=== PATIENT | female | born 1980 | race American Indian/Alaskan Native ===

== ENCOUNTER 2021-10-04 13:50 | Emergency (ER) | payer MEDICAID ==
--- NOTE | 2021-10-04 14:48 | Emergency Department Report ---
<LYNDA TONG - Last Filed: 10/04/21 18:45> ED General Adult HPI - General Chief complaint: Hyperglycemia Stated complaint: NOT FEELING GOOD Time Seen by Provider: 10/04/21 14:00 Source: patient Mode of arrival: Stretcher Limitations: No Limitations - History of Present Illness Initial comments: 41-year-old -Armenian obese female with a past medical history of congestive heart failure, diabetes, hypertension, DKA, and is status post right BKA presents to the ER today with complaints of "my blood sugar is high, my blood pressure is high, and I think my congestive heart failure is acting up,". Patient states symptoms started about 2 days ago. Patient states that she takes insulin to help control her blood sugar and she usually takes 14 units 3 times a day and a long-lasting insulin at night. She states that she did increase her insulin to 20 units 3 times a day but her blood sugar still been running in the 300s and sometimes up into the 500s. Patient admits that she has not been compliant with her blood pressure medications, nor her "heart medications". She states that she is also on Lasix, but ran out and has not taken it in a while. She states that she can tell when her blood pressure is high because she started seeing dots. But she has not actually checked it at home. She states that she has been short of breath mainly with exertion and she has had lower extremity swelling. She reports mild body aches but otherwise reports no chest pain, headache, focal weakness, ph, slurred speech, vomiting, diarrhea or any additional symptoms. MD Complaint: Elevated BP, await blood sugar, leg swelling and shortness of breath -: days(s) (2) Severity scale (0 -10): 0 - Related Data Previous Rx's Medication Instructions Recorded Last Taken Type Amoxicillin/Potassium Clav 1 each PO BID #14 tablet 10/04/21 Unknown Rx [Augmentin 875-125 Tablet] Furosemide [Lasix TAB] 40 mg PO QDAY #30 tablet 10/04/21 Unknown Rx Allergies Allergy/AdvReac Type Severity Reaction Status Date / Time No Known Allergies Allergy Unverified 10/04/21 13:53 ED Review of Systems Comment: All other systems reviewed and negative Constitutional: denies: chills, diaphoresis, fever, malaise, weakness Eyes: denies: eye pain, eye discharge, vision change ENT: denies: ear pain, throat pain, dental pain, hearing loss, epistaxis Respiratory: shortness of breath. denies: cough, orthopnea, wheezing Cardiovascular: dyspnea on exertion, edema. denies: chest pain, palpitations, syncope, paroxysmal nocturnal dyspnea Gastrointestinal: denies: abdominal pain, nausea, vomiting, diarrhea, constipation, hematemesis, hematochezia Genitourinary: denies: urgency, dysuria, frequency, hematuria, discharge, abnormal menses, dyspareunia Musculoskeletal: denies: back pain, joint swelling, arthralgia, myalgia Skin: denies: rash, lesions, change in color, change in hair/nails, pruritus Neurological: denies: headache, weakness, numbness, paresthesias, confusion, abnormal gait, vertigo Psychiatric: denies: anxiety, depression, auditory hallucinations, visual hallucinations, homicidal thoughts, suicidal thoughts Hematological/Lymphatic: denies: easy bleeding, easy bruising, swollen glands ED Past Medical Hx - Past Medical History Previous Medical History?: Yes Hx Hypertension: Yes Hx Congestive Heart Failure: Yes Hx Diabetes: Yes - Surgical History Past Surgical History?: Yes Additional Surgical History: RIGHT BKA - Medications Home Medications: Home Medications Medication Instructions Recorded Confirmed Last Taken Type Amoxicillin/Potassium Clav 1 each PO BID #14 tablet 10/04/21 Unknown Rx [Augmentin 875-125 Tablet] Furosemide [Lasix TAB] 40 mg PO QDAY #30 tablet 10/04/21 Unknown Rx ED Physical Exam - General Limitations: No Limitations General appearance: alert, in no apparent distress, obese - Head Head exam: Present: atraumatic, normocephalic, normal inspection - Eye Eye exam: Present: normal appearance, PERRL, EOMI Pupils: Present: normal accommodation - ENT ENT exam: Present: mucous membranes dry - Neck Neck exam: Present: normal inspection, full ROM. Absent: meningismus - Respiratory Respiratory exam: Present: normal lung sounds bilaterally. Absent: respiratory distress, wheezes, rales, rhonchi - Cardiovascular Cardiovascular Exam: Present: regular rate, normal rhythm, normal heart sounds - GI/Abdominal GI/Abdominal exam: Present: soft. Absent: distended, tenderness, guarding, rebound - Extremities Exam Extremities exam: Present: pedal edema (+1 pitting edema noted to left lower extremity; right BKA noted to the right lower extremity) - Neurological Exam Neurological exam: Present: alert, oriented X3, CN II-XII intact, normal gait - Psychiatric Psychiatric exam: Present: normal affect, normal mood - Skin Skin exam: Present: intact ED Medical Decision Making - Lab Data Result diagrams: 10/04/21 15:05 10/04/21 15:05 - Radiology Data Patient: MICHAEL KEITA MR#: [id number] : 1980 Acct:[id number] Age/Sex: 41 / F ADM Date: 10/04/21 Loc: ED Attending Dr: Ordering Physician: LYNDA TONG Date of Service: 10/04/21 Procedure(s): XR chest routine 2V Accession Number(s): [id number] cc: LYNDA TONG Fluoro Time In Minutes: CHEST 2 VIEWS INDICATION: SOB. COMPARISON: None. FINDINGS: Support devices: None. Heart: Within normal limits. Lungs/Pleura: Mild increasing opacity in the region of the right middle lobe and lingula No significant pleural effusion. IMPRESSION: Suspect mild basilar pneumonia. Signer Name: Mark Cary MD Signed: 10/04/2021 3:14 PM Workstation Name: [id number] Transcribed By: ES Dictated By: Mark Cary MD Electronically Authenticated By: Mark Cary MD Signed Date/Time: 10/04/211513 DD/ 12 TD/TT: ED Disposition Clinical Impression: UTI (urinary tract infection), Hyperglycemia due to diabetes mellitus, Pneumonia, CHF (congestive heart failure) Disposition: 01 HOME / SELF CARE / HOMELESS Is pt being admited?: No Does the pt Need Aspirin: No Condition: Stable Instructions: Urinary Tract Infection, Adult, [id number], Living With Heart Failure, Preventing Diabetes Mellitus Complications, Community-Acquired Pneumonia, Adult, [id number], Diabetes Mellitus Type 2 in Adults (ED), Bacteri al Pneumonia (ED) Additional Instructions: Recommend that you take the Augmentin as prescribed this will help your UTI and pneumonia. It is very important that you remain compliant with your diabetic medications and also your blood pressure medication and your Lasix. Keep your appointment with your PCP tomorrow. Return to the ER if at any point your symptoms changes or worsens in any way. Prescriptions: Amoxicillin/Potassium Clav [Augmentin 875-125 Tablet] 1 each PO BID #14 tablet Furosemide [Lasix TAB] 40 mg PO QDAY #30 tablet Referrals: PRIMARY CARE, [Primary Care Provider] - 3-5 Days Forms: Work/School Release Form(ED) Time of Disposition: 18:48 <GERALDOMAXIMUS - Last Filed: 10/04/21 19:25> ED Review of Systems ROS: Stated complaint: NOT FEELING GOOD Other details as noted in HPI ED Course Vital Signs 10/04/21 10/04/21 10/04/21 13:50 17:31 19:14 Temperature 98.6 F Pulse Rate 102 H 99 H 104 H Respiratory 14 16 16 Rate Blood Pressure 170/100 159/88 144/81 [Left] O2 Sat by Pulse 95 94 99 Oximetry ED Medical Decision Making - Lab Data Result diagrams: 10/04/21 15:05 10/04/21 15:05 Lab Results 10/04/21 10/04/21 10/04/21 Range/Units 15:05 15:05 15:05 WBC 9.1 (4.5-11.0) K/mm3 RBC 4.14 (3.65-5.03) M/mm3 Hgb 11.3 (10.1-14.3) gm/dl Hct 35.3 (30.3-42.9) % MCV 85 (79-97) fl MCH 27 L (28-32) pg MCHC 32 (30-34) % RDW 15.1 (13.2-15.2) % Plt Count 338 (140-440) K/mm3 Lymph % (Auto) 28.8 (13.4-35.0) % [place] % (Auto) 3.5 (0.0-7.3) % Eos % (Auto) 1.5 (0.0-4.3) % Baso % (Auto) 0.4 (0.0-1.8) % Lymph # (Auto) 2.6 (1.2-5.4) K/mm3 [place] # (Auto) 0.3 (0.0-0.8) K/mm3 Eos # (Auto) 0.1 (0.0-0.4) K/mm3 Baso # (Auto) 0.0 (0.0-0.1) K/mm3 Seg Neutrophils % 65.8 (40.0-70.0) % Seg Neutrophils # 6.0 (1.8-7.7) K/mm3 VBG pH 7.384 (7.320-7.420) Sodium 136 L (137-145) mmol/L Potassium 3.9 (3.6-5.0) mmol/L Chloride 99.7 (98-107) mmol/L Carbon Dioxide 24 (22-30) mmol/L Anion Gap 16 mmol/L BUN 8 (7-17) mg/dL Creatinine 0.4 L (0.6-1.2) mg/dL Estimated GFR > 60 ml/min BUN/Creatinine Ratio 20 % Glucose 295 H (65-100) mg/dL POC Glucose (70-105) mg/dL Calcium 8.2 L (8.4-10.2) mg/dL Total Bilirubin 0.30 (0.1-1.2) mg/dL AST 11 (5-40) units/L ALT 11 (7-56) units/L Alkaline Phosphatase 123 (35-129) units/L Troponin T (0.00-0.029) ng/mL NT-Pro-B Natriuret Pep 527.1 H (0-450) pg/mL Total Protein 6.7 (6.3-8.2) g/dL Albumin 3.6 L (3.9-5) g/dL Albumin/Globulin Ratio 1.2 % Urine Color (Yellow) Urine Turbidity (Clear) Urine pH (5.0-7.0) Ur Specific [place] (1.003-1.030) Urine Protein (Negative) mg/dL Urine Glucose (UA) (Negative) mg/dL Urine Ketones (Negative) mg/dL Urine Blood (Negative) Urine Nitrite (Negative) Urine Bilirubin (Negative) Urine Urobilinogen (<2.0) mg/dL Ur Leukocyte Esterase (Negative) Urine WBC (Auto) (0.0-6.0) /HPF Urine RBC (Auto) (0.0-6.0) /HPF U Epithel Cells (Auto) (0-13.0) /HPF Urine Mucus /HPF Urine Yeast (Budding) /HPF 10/04/21 10/04/21 10/04/21 Range/Units 15:05 18:41 Unknown WBC (4.5-11.0) K/mm3 RBC (3.65-5.03) M/mm3 Hgb (10.1-14.3) gm/dl Hct (30.3-42.9) % MCV (79-97) fl MCH (28-32) pg MCHC (30-34) % RDW (13.2-15.2) % Plt Count (140-440) K/mm3 Lymph % (Auto) (13.4-35.0) % [place] % (Auto) (0.0-7.3) % Eos % (Auto) (0.0-4.3) % Baso % (Auto) (0.0-1.8) % Lymph # (Auto) (1.2-5.4) K/mm3 [place] # (Auto) (0.0-0.8) K/mm3 Eos # (Auto) (0.0-0.4) K/mm3 Baso # (Auto) (0.0-0.1) K/mm3 Seg Neutrophils % (40.0-70.0) % Seg Neutrophils # (1.8-7.7) K/mm3 VBG pH (7.320-7.420) Sodium (137-145) mmol/L Potassium (3.6-5.0) mmol/L Chloride (98-107) mmol/L Carbon Dioxide (22-30) mmol/L Anion Gap mmol/L BUN (7-17) mg/dL Creatinine (0.6-1.2) mg/dL Estimated GFR ml/min BUN/Creatinine Ratio % Glucose (65-100) mg/dL POC Glucose 154 H (70-105) mg/dL Calcium (8.4-10.2) mg/dL Total Bilirubin (0.1-1.2) mg/dL AST (5-40) units/L ALT (7-56) units/L Alkaline Phosphatase (35-129) units/L Troponin T < 0.010 (0.00-0.029) ng/mL NT-Pro-B Natriuret Pep (0-450) pg/mL Total Protein (6.3-8.2) g/dL Albumin (3.9-5) g/dL Albumin/Globulin Ratio % Urine Color Yellow (Yellow) Urine Turbidity Clear (Clear) Urine pH 6.0 (5.0-7.0) Ur Specific [place] 1.017 (1.003-1.030) Urine Protein <15 mg/dl (Negative) mg/dL Urine Glucose (UA) >=500 (Negative) mg/dL Urine Ketones Neg (Negative) mg/dL Urine Blood Neg (Negative) Urine Nitrite Neg (Negative) Urine Bilirubin Neg (Negative) Urine Urobilinogen < 2.0 (<2.0) mg/dL Ur Leukocyte Esterase Mod (Negative) Urine WBC (Auto) 23.0 H (0.0-6.0) /HPF Urine RBC (Auto) 4.0 (0.0-6.0) /HPF U Epithel Cells (Auto) 4.0 (0-13.0) /HPF Urine Mucus Few /HPF Urine Yeast (Budding) Few /HPF - EKG Data -: EKG Interpreted by Me EKG shows normal: sinus rhythm, axis, intervals, QRS complexes (LVH), ST-T waves Rate: tachycardia - EKG Data When compared to previous EKG there are: previous EKG unavailable Interpretation: LVH - Medical Decision Making I saw this patient in conjunction with CORTEZ Greer. Patient presents with the complaint of uncontrolled blood sugar and some shortness of breath concern for an exacerbation of her CHF. The patient has some obvious noncompliance with medication because she either is out of meds or does not take it regularly. The patient was found to have hyperglycemia without evidence of DKA. Blood sugar was about 290, but there is no elevated anion gap. She was given 4 units of insulin and repeat blood sugar on Accu-Chek was down to about 150. proBNP was about 520. Chest x-ray did not show any significant interstitial edema, pneumonia, pleural effusions. The patient does not have any significant edema to the bilateral lower extremities. On examination she does not appear to have any tachypnea, accessory muscle use, conversational dyspnea. She does not appear in any respiratory distress and does not appear in decompensated heart failure. She was given a dose of IV Lasix to assist with some diuresis. Patient has a mild urinary tract infection. She will be discharged home on antibiotics. She has an appointment with a primary care physician tomorrow for refill of all of her medications and reevaluation. Vital signs reassuring including being afebrile. She appears safe for discharge home at this time. Critical Care Time: No Critical care attestation.: If time is entered above; I have spent that time in minutes in the direct care of this critically ill patient, excluding procedure time. ED Disposition Is pt being admited?: No
--- NOTE | 2021-10-04 15:18 | XRay Report ---
CHEST 2 VIEWS INDICATION: SOB. COMPARISON: None. FINDINGS: Support devices: None. Heart: Within normal limits. Lungs/Pleura: Mild increasing opacity in the region of the right middle lobe and lingula No signifi cant pleural effusion. IMPRESSION: Suspect mild basilar pneumonia. Signer Name: Mark Cary MD Signed: 10/04/2021 3:14 PM Workstation Name: [id number]
[2021-10-04 15:21] LABS: Basophils % (Auto) 0.4 % (0.0-1.8); Eosinophils # (Auto) 0.1 K/mm3 (0.0-0.4); Eosinophils % (Auto) 1.5 % (0.0-4.3); Hematocrit 35.3 % (30.3-42.9); Hemoglobin 11.3 gm/dl (10.1-14.3); Lymphocytes # (Auto) 2.6 K/mm3 (1.2-5.4); Lymphocytes % (Auto) 28.8 % (13.4-35.0); Mean Corpuscular HGB Conc 32 % (30-34); Mean Corpuscular Volume 85 fl (79-97); Monocytes # (Auto) 0.3 K/mm3 (0.0-0.8); Monocytes % (Auto) 3.5 % (0.0-7.3); Platelet Count 338 K/mm3 (140-440); Red Blood Count 4.14 M/mm3 (3.65-5.03); Red Cell Distribution Width 15.1 % (13.2-15.2)
[2021-10-04 15:42] LABS: Alanine Aminotransferase 11 units/L (7-56); Albumin 3.6 g/dL (3.9-5); Blood Urea Nitrogen 8 mg/dL (7-17); Calcium 8.2 mg/dL (8.4-10.2); Hemolysis Index 0
[2021-10-04 15:43] LABS: BUN/Creatinine Ratio 20
[2021-10-04] MEDS ORDERED: INSULIN REGULAR, HUMAN 100 UNITS/1 ML IV ONE ×2 (16:37→17:11)
[2021-10-04 16:52] LABS: Bilirubin,Urine NEG (Negative); Blood,Urine NEG (Negative); Color,Urine Yellow (Yellow); Mucus,Urine FEW /HPF; Protein,Urine <15 mg/dL mg/dL (Negative); Urobilinogen,Urine < 2.0 mg/dL (<2.0)
[2021-10-04] MEDS ORDERED: FUROSEMIDE 20 MG/2 ML INJ IV ONE (17:11)
[2021-10-04 19:16] VITALS: BP 144/81
--- NOTE | 2021-10-05 10:53 | Electrocardiograph Report ---
[facility] Test Date: 2021-10-04 Test Time: 16:04:12 Pat Name: MICHAEL KEITA Department: Room: Gender: F Accredited Pharmacy Technician: KYLE : 1980 Requested By: LYNDA TONG Order Number: [id number] Reading MD: Montez Adams Measurements Intervals [place] Rate: 100 P: 43 ME: 158 QRS: 19 QRSD: 94 T: 19 QT: 355 QTc: 458 Interpretive Statements Sinus tachycardia Consider left ventricular hypertrophy No previous ECG available for comparison Electronically Signed On 10-05-2021 10:53:12 EST by Montez Adams
== END 2021-10-04 19:16 | disposition home or self-care (01) ==
LOC: ED 13:50
DX: N39.0 Urinary tract infection, site not specified (principal); E11.65 Type 2 diabetes mellitus with hyperglycemia; J18.9 Pneumonia, unspecified organism; I11.0 Hypertensive heart disease with heart failure; I50.9 Heart failure, unspecified; Z98.890 Other specified postprocedural states; Z79.899 Other long term (current) drug therapy
CPT/HCPCS: 36415; 71046; 80053; 81001; 82805; 82962; 83880; 84484; 85025; 93005; 96374; 96375; 99284; J1940; 87086; Q9967; J1815